=== PATIENT | male | born 1995 | race Caucasian/White ===

== ENCOUNTER 2021-09-29 19:01 | Emergency (ER) | payer MEDICAID ==
[2021-09-29] MEDS ORDERED: LORazepam 2 MG/ML SDV IVPUSH ONE (19:35)
[2021-09-29] MEDS ORDERED: Sodium Chloride 0.9% 1,000 ML IV ONE (19:35)
[2021-09-29] MEDS ORDERED: Ondansetron 4 MG/2 ML SDV IVPUSH ONE (19:35)
[2021-09-29] MEDS ORDERED: chlordiazePOXIDE 25 MG Cap PO ONE (19:36)
[2021-09-29] MEDS ORDERED: Famotidine 20 MG/2 ML SDV IVPUSH ONE (19:37)
[2021-09-29 20:19] LABS: BLOOD UREA NITROGEN,BUN 14 mg/dL (7.0-18.0); CARBON DIOXIDE,CO2 20.8 mmol/L (21.0-32.0); CHLORIDE,CL 100 mmol/L (98-107); GLUCOSE RANDOM 103 mg/dL (74-106); LIPASE 39 U/L (73-393); POTASSIUM,K 3.8 mmol/L (3.5-5.1); SODIUM,NA 138 mmol/L (136-148)
[2021-09-29] MEDS ORDERED: Acetaminophen 325 MG Tab PO ONE (21:55)
== END 2021-09-29 22:46 | disposition home or self-care (01) ==
LOC: MW.ED 19:01
DX: F10.230 Alcohol dependence with withdrawal, uncomplicated (principal)
CPT/HCPCS: 36415; 71045; 80053; 80305; 80307; 83690; 83735; 84484; 85025; 93005; 96374; 96375; 99285; A9270; J2060; J2405; J3490; J7030; 93010; 99284